=== PATIENT | female | born 1945 | race African-American/Black ===

== ENCOUNTER 2023-10-16 22:41 | Emergency (ER) | payer OTHER ==
[~2023-10-16] VITALS: Ht 167.6 cm; Wt 79.9 kg
[~2023-10-16 22:41] MED LIST: ATEN-73 PO; DONE-52 PO; LEVE250T4 PO; LOSA-381 PO; TRAZ-252 PO; WARF1TAB9 PO
[2023-10-16] MEDS ORDERED: SODIUM CHLORIDE 0.9% 100 ML ONE (23:06)
[2023-10-16] MEDS ORDERED: IOHEXOL 350 MG/ML 100 ML VIAL ONE (23:06)
[2023-10-16 23:37] LABS: GLUCOMETER DEV NAME(LOC) ERT.5; GLUCOSE,POINT OF CARE 180 MG/DL (70-110)
[2023-10-16 23:49] LABS: BASOPHILS % (AUTO) 0.2 % (0.0-2.0); EOSINOPHILS % (AUTO) 1.1 % (1.0-6.0); HEMATOCRIT 41.4 % (36-46); HEMOGLOBIN 13.2 g/dL (12.0-16.0); LYMPHOCYTES % (AUTO) 21.2 % (22.0-44.0); MEAN CORPUSCULAR HEMOGLOBIN 24.1 pg (26.0-34.0); MEAN CORPUSCULAR HGB CONC 31.9 G/dL (31.0-37.0); MEAN CORPUSCULAR VOLUME 76 fL (80-100); MONOCYTES # (AUTO) 0.6 K/uL (0.1-1.0); MONOCYTES % (AUTO) 4.2 % (2.0-9.0); NEUTROPHILS # (AUTO) 10.5 K/uL (1.8-7.7); NEUTROPHILS % (AUTO) 73.3 % (40.0-70.0); PLATELET COUNT (AUTO) 355 K/uL (150-450); RED BLOOD CELL COUNT(AUTO) 5.49 MIL/uL (4.00-5.20); RED CELL DISTRIBUTION WIDTH 17.4 % (11.5-14.5); WHITE BLOOD COUNT (AUTO) 14.3 K/uL (4.5-11.0)
[2023-10-16 23:52] LABS: INR 1.1 (0.9-1.1); PROTHROMBIN TIME 11.8 SEC (9.4-11.6)
[2023-10-16 23:56] LABS: ALANINE AMINOTRANSFERASE 9 U/L (12-78); ALBUMIN 3.1 g/dL (3.4-5.0); ALKALINE PHOSPHATASE 65 U/L (46-116); ANION GAP 12 mmol/L (8-16); ASPARTATE AMINOTRANSFERASE 19 U/L (15-37); BILIRUBIN,TOTAL 0.6 mg/dL (0.1-1.0); CALCIUM, TOTAL 10.1 mg/dL (8.8-10.5); CARBON DIOXIDE 27 mmol/L (22-29); CHLORIDE 101 mmol/L (98-107); CREATININE 0.87 mg/dL (0.60-1.30); GLOMERULAR FILTR. RATE CALC > 60 mL/min (>60); GLUCOSE,RANDOM 163 mg/dL (70-110); SODIUM SERUM 140 mmol/L (136-145); UREA NITROGEN, BLOOD 14 mg/dL (7-18)
[2023-10-16] MEDS: LevETIRAcetam 1,000 MG in DEXTROSE 5%-WATER 100 ML IV ONE (23:58)
[2023-10-17 00:04] LABS: POTASSIUM 2.6 mmol/L (3.5-5.1)
[2023-10-17 00:05] LABS: TROPONIN I-HIGH SENSITIVITY Less Than 4 ng/L (<51)
[2023-10-17 00:36] VITALS: TEMP 98.7
[2023-10-17] MEDS: CefTRIAXone 1 GM/DEXTROSE 50 ML IV ONE (01:48)
[2023-10-17] MEDS: POTASSIUM CHL 10 MEQ/WATER 50 ML IV ONE (01:48)
[2023-10-17 02:30] VITALS: BP 129/73; PULSE 70; RESP 21
== END 2023-10-17 02:50 | disposition left against medical advice (07) ==
LOC: EMS 22:43
DX: R41.82 Altered mental status, unspecified (principal); R56.9 Unspecified convulsions; R53.1 Weakness; R62.7 Adult failure to thrive; E87.6 Hypokalemia; I11.0 Hypertensive heart disease with heart failure; I50.9 Heart failure, unspecified; I25.10 Atherosclerotic heart disease of native coronary artery without angina pectoris; I48.91 Unspecified atrial fibrillation
CPT/HCPCS: 99291; 70496; 96365; 71045; 80053; 82962; 84484; 85025; 85610; 36415; 70498; 82948; 93005; 51702; 70450; J0712; Q9967; J7060; J7050